=== PATIENT | male | born 1960 | race Caucasian/White ===

== ENCOUNTER 2024-10-23 10:10 | Emergency (ER) | payer MEDICARE, SELFPAY ==
[2024-10-23] VITALS (9 sets, daily range): BP systolic 109–152; BP diastolic 37–131
[2024-10-23 10:34] LABS: Urine Albumin 3+ (Neg - Trace); Urine Bilirubin Negative (Negative); Urine Character Cloudy (Clear); Urine Color Yellow; Urine Glucose Negative (Negative); Urine Ketone Negative (Negative); Urine Leukocyte 1+ (Negative); Urine Nitrite Negative (Negative); Urine Occult Blood 4+ (Negative); Urine Urobilinogen Negative (Neg - 1+)
[2024-10-23 11:00] LABS: Urine Red Blood Cell >100 /HPF (0-2); Urine Squamous Cell 0-2 /LPF (Few)
[2024-10-23 11:01] LABS: Urine Amorphous Seen; Urine Bacteria Moderate (Negative)
[2024-10-23 11:57] LABS: % Basophils 0.8 % (0-2); % Eosinophils 0.9 % (0-6); % Immature Granulocytes 0.2 % (0-0.5); % Lymphocytes 24.4 % (20.5-51.1); % Monocytes 8.7 % (1.7-9.3); Absolute Basophils 0.1 10^3/uL (0-0.2); Absolute Eosinophils 0.1 10^3/uL (0-0.7); Absolute Lymphocytes 1.6 10^3/uL (1.2-3.4); Absolute Monocytes 0.6 10^3/uL (0.1-0.6); Absolute Neutrophils 4.1 10^3/uL (1.4-6.5); Hematocrit 43.4 % (39.0-52.0); Hemoglobin 14.9 g/dL (13.0-18.0); Mean Corp Hgb Conc. 34.3 g/dL (33.0-37.0); Mean Corpuscular Hgb 31.7 pg (27.0-31.0); Mean Corpuscular Volume 92.3 fL (80.0-94.0); Mean Platelet Volume 9.6 fL (7.4-10.4); Nucleated Red Blood Cells % 0 % (-); Platelet Count 167 10^3/uL (130-400); White Blood Cell Count 6.4 10^3/uL (4.8-10.8)
[2024-10-23 12:17] LABS: ALT (SGPT) 20 U/L (0-50); AST (SGOT) 19 U/L (17-59); Albumin 4.7 g/dl (3.5-5.0); Alkaline Phosphatase 55 U/L (38-126); Blood Urea Nitrogen 16 mg/dl (9-20); Calcium 9.7 mg/dl (8.4-10.2); Carbon Dioxide 26 mmol/L (22-30); Chloride 111 mmol/L (98-107); Glucose 116 mg/dl (70-99); Potassium 4.2 mmol/L (3.5-5.1); Sodium 143 mmol/L (135-145); Total Bilirubin 0.2 mg/dl (0.2-1.3); Total Protein 7.1 g/dl (6.3-8.2); eGFR > 60.00
[2024-10-23 12:33] LABS: Creatine Phosphokinase 70 U/L (55-170)
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
== END 2024-10-23 15:15 | disposition home or self-care (01) ==
LOC: EMR 10:10
PROVIDERS: EMERGENCY PHYSICIAN Emergency Medicine; FAMILY PHYSICIAN Family Medicine
DX: R33.9 Retention of urine, unspecified (principal); R31.9 Hematuria, unspecified; N32.3 Diverticulum of bladder; G40.909 Epilepsy, unspecified, not intractable, without status epilepticus; Z86.73 Personal history of transient ischemic attack (TIA), and cerebral infarction without residual deficits; Z87.891 Personal history of nicotine dependence
CPT/HCPCS: 99285; 51702; 51798; 76770; 80053; 81003; 81015; 82550; 85025; 87086

== ENCOUNTER → 2024-11-06 09:10 | Outpatient (REF) | payer MEDICARE, SELFPAY ==
[2024-11-06 12:36] LABS: PSA, Total - Screen 3.29 ng/ml (0.0-4.0)
== END ==
LOC: SDSPAT 09:10
PROVIDERS: ATTENDING PHYSICIAN Specialist; FAMILY PHYSICIAN Family Medicine
DX: Z01.818 Encounter for other preprocedural examination (principal)
CPT/HCPCS: 36415; 93005; G0103

== ENCOUNTER 2024-11-08 06:03 | Day surgery (SDC) | payer MEDICARE, SELFPAY ==
[2024-11-06 13:47] VITALS: BMI 22.9
[2024-11-08] VITALS (9 sets, daily range): BP systolic 117–134; BP diastolic 62–93; BMI 22.9
[2024-11-08] MEDS: TYLENOL 1000 MG PO (07:48)
[2024-11-08] MEDS: NORMOSOL-R/PLASMALYTE-A 1000 IV (07:49)
--- NOTE | 2024-11-08 11:20 | PTCARENOTE ---
11/08- Patient transferred and oriented to unit without issue from PACU. PACU Nurse took credit for 1500cc from Bag #1. Patient presented to unit with 1500cc left in bag #1. 1500cc clear pink urine in Davies bag. Skin CDI. Patient denies any
current issues or pain.
[2024-11-08] MEDS: COLACE 100 MG PO ×2 (11:46→16:21)
--- NOTE | 2024-11-08 14:04 | CM ---
[facility] Patient stated that he lives alone in a mobile home and has a ramp to enter. Patient PCP is Dr. Shah and he uses the [facility] in [place]. Patient sister brought him to and family/friends will assist as
needed. Patient was driving until recently. Patient stated that he was not intrested in VN at this time, and would rely on family/friends. CM will continue to follow for discharge planning needs.
Plan; home with no needs vs home with VN
[2024-11-08] MEDS: TOPAMAX 100 MG PO (19:46)
[2024-11-08] MEDS: LAMICTAL 200 MG PO (19:46)
[2024-11-08] MEDS: KEPPRA 1500 MG PO (19:46)
[2024-11-09] MEDS: LAMICTAL 200 MG PO (07:53)
[2024-11-09] MEDS: TOPAMAX 100 MG PO (07:53)
[2024-11-09] MEDS: KEPPRA 1500 MG PO (07:53)
[2024-11-09] MEDS: COLACE 100 MG PO ×2 (07:53→11:34)
[2024-11-09 08:44] VITALS: BP 113/73
--- NOTE | 2024-11-09 09:38 | W.PN.URO.CBU ---
Today's Communication / Plan
-
voiding trial in progress
d/c today +/- Davies
Assessment / Plan
-
stable
Diagnosis
-
Date of Service: November 09, 2024
-
Patient Diagnosis: BPH with urinary retention s/p TURP
Post Op Day: 1
Subjective
-
comfortable
has voided 'some'since Davies removal
Objective
-
Vital Signs
Temp Pulse Resp BP Pulse Ox
97.6 F 65 16 113/73 97
11/09/24 08:44 11/09/24 08:44 11/09/24 08:44 11/09/24 08:44 11/09/24 08:44
Intake and Output
11/08/24 11/09/24 11/10/24
06:59 06:59 06:59
Intake Total 5480 / 5480
Output Total 8750 / 8750
Balance -3270 / -3270
Intake:
Oral fluids 5280 / 5280
IV fluids (Total) 200 / 200
Normosal 200 / 200
Output:
True Urine Output from [facility] 8750 / 8750
Physical Exam
-
General - well developed, well nourished, no acute distress
[2024-11-09] MEDS: FLOMAX 0.4 MG PO (09:53)
--- NOTE | 2024-11-09 11:32 | CM ---
Patient stable for d/c today.
Per chart, patient has family/friends that can assist at home. Patient declined VN need
Plan: Home today, no needs
[2024-11-09] MEDS: URECHOLINE 50 MG PO (11:34)
[2024-11-09 13:52] VITALS: BP 142/76
== END 2024-11-09 15:16 | disposition home or self-care (01) ==
LOC: SDS 06:03
PROVIDERS: ATTENDING PHYSICIAN Specialist
DX: N40.1 Benign prostatic hyperplasia with lower urinary tract symptoms (principal); R33.8 Other retention of urine; N21.0 Calculus in bladder
CPT/HCPCS: 52601; 52317; 88305; 82365